=== PATIENT | male | born 1950 | race Caucasian/White ===

== ENCOUNTER 2019-11-10 01:08 | Day surgery (SDC) | payer MEDICARE, OTHER, SELFPAY ==
[2019-11-03 09:42] VITALS: BMI 24.0
[2019-11-10 07:53] VITALS: BP 115/77; PULSE 99; RESP 16; TEMP 36.7; O2SAT 98
[2019-11-10] MEDS: LACTATED RINGERS 1,000 ML 150 ML IV CONT (08:01)
--- NOTE | 2019-11-10 08:10 | WPDANESEPPF ---
Anes - Initial Pre Proc Eval Procedure: Operation Date: 11/10/19 08:30 Proposed Procedures p Colonoscopy - Sadiq Curran DO Date/Time: 11/10/19 08:10 Surgeon: Sadiq Curran DO Pre Op Diagnosis: small bowel obstruction, family hx colon CA Patient Data Age: 68 Gender: M Height: 5 ft 11 in Weight: 76.3 kg Last Vital Signs Temp 36.7 C 11/10/19 07:53 Pulse 99 11/10/19 07:53 Resp 16 11/10/19 07:53 BP 115/77 11/10/19 07:53 Pulse Ox 98 11/10/19 07:53 Allergies Allergy/AdvReac Type Severity Reaction Status Date / Time No Known Allergies Allergy Verified 11/10/19 07:36 Home Medications Medication Instructions Recorded Confirmed Type desoximetasone 1 applic TOPICAL DAILY PRN 09/23/19 11/03/19 History hydrocortisone valerate 1 applic TOPICAL BID PRN 09/23/19 11/03/19 History loratadine [Claritin] 10 mg PO DAILY 09/23/19 11/10/19 History pantoprazole 40 mg PO QAM 09/23/19 11/10/19 History sulindac 200 mg PO BID PRN 09/23/19 11/10/19 History tamsulosin 0.4 mg PO BID 09/23/19 11/10/19 History digoxin 250 mcg PO DAILY 11/03/19 11/10/19 History naproxen 250 mg PO BID PRN 11/03/19 11/10/19 History Patient hx anesthesia problems: none Family hx anesthesia problems: none PMFSH Past Medical History Medical History Arthritis Bowel obstruction (09/22/19) BPH (benign prostatic hyperplasia) Cervical vertebral fusion Chronic back pain Eczema GERD (gastroesophageal reflux disease) Migraine Rectal polyp Surgical History Surgical History H/O local excision of skin lesion History of tonsillectomy Status post removal of part of parathyroid Family History Family History Father Acute myocardial infarction Mother Colon cancer Social History Social History Smoking status: Never smoker Second hand tobacco smoke exposure: Yes Alcohol intake: current Drinks per week: 4 Substance use: never Gender identity (if verbalized by the patient): Male Spiritual care concerns: No Agree to blood products: Yes Anes - Eval Final PreProcedure Day of Procedure 11/10/19 08:10 Patient weight: normal Heart: regular rate and rhythm Lungs: clear to auscultation Airway: Mallampati scale class 1 Neurological: alert and oriented Last oral intake: >/= 8 hours ASA classification: III Emergent: no Anesthetic plan: proceed Anesthesia type and monitoring: general and standard monitoring Informed Consent: The patient's anesthetic plan and its attendant risks and benefits were discussed with the patient/family/POA. Questions were solicited and answers provided to the satisfaction of the patient/family/POA.
--- NOTE | 2019-11-10 08:13 | PM.IMHP ---
H&P: HPI History of Present Illness Chief complaint: small bowel obstruction, family hx colon CA Narrative: Meet Oviedo is a 68 year old male presents today for colonoscopy. Patient has had two SBO for which he was hospitalized in 01/2019 and 09/2019. He gets epigastric abdominal pain and vomiting with these two episodes. Both of these obstructions resolved on thier own without surgical intervention. Last colonsocopy was in 2013 and had tics and roids. He does have personal hx of colon polyps in the past. Strong family hx of colon cancer in his mother, aunt and grandmother. He denies any constpiation, diarrhea, melena, hematochezia, abdominal pains or rectal pains. He does have GERD which is well controlled on protonix daily. Deneis abnormal weight loss, fever or chills. Review of Systems Review of Systems: All systems reviewed & are unremarkable except as noted in HPI and below PMFSH Past Medical History Medical History (Updated 11/10/19 @ 08:21 by Julianna Mulligan, MACHINE FELLER) Arthritis Bowel obstruction (09/22/19) BPH (benign prostatic hyperplasia) Cervical vertebral fusion Chronic back pain Eczema GERD (gastroesophageal reflux disease) GERD (gastroesophageal reflux disease) Hx of adenomatous colonic polyps Migraine PVC (premature ventricular contraction) Rectal polyp SVT (supraventricular tachycardia) Surgical History Surgical History (Updated 11/10/19 @ 08:19 by Julianna Mulligan, MACHINE FELLER) H/O local excision of skin lesion History of tonsillectomy Hx of colonoscopy Hx of esophagogastroduodenoscopy Hx of spinal fusion Hx of tonsillectomy Hx of vasectomy Status post removal of part of parathyroid Family History Family History (Updated 11/10/19 @ 08:20 by Julianna Mulligan, MACHINE FELLER) Father Acute myocardial infarction Mother Colon cancer Other Carcinoma of colon Grandparent Carcinoma of colon Social History Social History Smoking status: Never smoker Second hand tobacco smoke exposure: Yes Alcohol intake: current Drinks per week: 4 Substance use: never Gender identity (if verbalized by the patient): Male Spiritual care concerns: No Agree to blood products: Yes Meds Home Medications and Allergies Home Medications Medication Instructions Recorded Confirmed Type desoximetasone 1 applic TOPICAL DAILY PRN 09/23/19 11/03/19 History hydrocortisone valerate 1 applic TOPICAL BID PRN 09/23/19 11/03/19 History loratadine [Claritin] 10 mg PO DAILY 09/23/19 11/10/19 History pantoprazole 40 mg PO QAM 09/23/19 11/10/19 History sulindac 200 mg PO BID PRN 09/23/19 11/10/19 History tamsulosin 0.4 mg PO BID 09/23/19 11/10/19 History digoxin 250 mcg PO DAILY 11/03/19 11/10/19 History naproxen 250 mg PO BID PRN 11/03/19 11/10/19 History Allergies Allergy/AdvReac Type Severity Reaction Status Date / Time No Known Allergies Allergy Verified 11/10/19 07:36 Vital Signs Vital Signs - 24 hr 11/10/19 07:53 Temperature 36.7 C Pulse Rate 99 Respiratory Rate 16 Blood Pressure 115/77 Pulse Oximetry 98 Exam Const: General: cooperative, healthy appearing, comfortable, alert and awake Nutritional Appearance: average body habitus Orientation/consciousness: oriented to person, oriented to place, oriented to time and patient oriented x3 Limitations: no limitations HENMT: Head: normal to inspection and normocephalic Mouth: Yes Normal oral and palatal mucosa present and Yes moist mucous membranes Neck: Neck: normal visual inspection, supple and no JVD Carotids: no bruits Resp: Effort & Inspection: normal respiratory effort and no respiratory distress Auscultation: clear to auscultation bilaterally Cardio: Rate: bradycardic Rhythm: regular rhythm and other Heart sounds: S1 normal heart sound present, S2 normal heart sound present, no gallops, no murmurs and no rubs GI: Inspection: normal to inspection GI Palp: No abdominal tenderness and
[2019-11-10 09:25] VITALS: BP 96/64; PULSE 65; RESP 16; O2SAT 95
[2019-11-10 09:35] VITALS: BP 105/65; PULSE 60; RESP 16; O2SAT 97
[2019-11-10 09:45] VITALS: BP 109/74; PULSE 53; RESP 18; O2SAT 99
== END 2019-11-10 10:20 | disposition home or self-care (01) ==
PROVIDERS: PCP Family Medicine Adolescent Medicine; Visit Provider Internal Medicine Gastroenterology
PROC: 0DJD8ZZ Inspection of Lower Intestinal Tract, Via Natural or Artificial Opening Endoscopic (ICD-10-PCS; CPT 45378; principal; 2019-11-10 08:30)
DX: Z09 Encounter for follow-up examination after completed treatment for conditions other than malignant neoplasm (principal); K52.9 Noninfective gastroenteritis and colitis, unspecified; K57.30 Diverticulosis of large intestine without perforation or abscess without bleeding; K64.8 Other hemorrhoids; Z86.010 Personal history of colon polyps; Z87.19 Personal history of other diseases of the digestive system; Z80.0 Family history of malignant neoplasm of digestive organs; K21.9 Gastro-esophageal reflux disease without esophagitis; N40.0 Benign prostatic hyperplasia without lower urinary tract symptoms; M19.90 Unspecified osteoarthritis, unspecified site; L30.9 Dermatitis, unspecified; Z98.1 Arthrodesis status
CPT/HCPCS: 45380; 88305; J2001; J2704; J7120

== ENCOUNTER 2021-10-03 10:07 | Outpatient (CLI) | payer MEDICARE, OTHER, SELFPAY ==
--- NOTE | ~2021-10-03 | US_ITS ---
EXAMINATION: US carotid duplex BI DATE: 10/03/2021 10:37 INDICATION: Diplopia. TECHNIQUE: Grayscale, color Doppler, and pulsed Doppler images of the cervical carotid arteries were obtained. The degree of vessel stenosis is placed in one of the following categories: normal, <50%, 5 0-69%, >=70% but less than near-occlusion, near-occlusion, or total occlusion. Note that percent sten osis relative to normal distal artery lumen diameter is indirectly measured from velocity measurement s as described by Julio César, et al. Radiology 2003; 229:340-346. COMPARISON: None. FINDINGS: RIGHT: The right common carotid artery (CCA) peak systolic velocity (PSV) is 140 cm/s. The right internal ca rotid artery (ICA) PSV is 101 cm/s. The right ICA end-diastolic velocity (EDV) is 20 cm/s. The right ICA/CCA PSV ratio is 0.7. Grayscale and color Doppler images yield an estimate of <50% diameter reduc tion from plaque in the ICA. There is antegrade flow in the right vertebral artery. LEFT: The left CCA PSV is 116 cm/s. The left ICA PSV is 70 cm/s. The left ICA EDV is 25 cm/s. The left ICA/ CCA PSV ratio is 0.6. Grayscale and color Doppler images yield an estimate of <50% diameter reduction from plaque in the ICA. There is antegrade flow in the left vertebral artery. IMPRESSION: 1. <50% stenosis in the right internal carotid artery. 2. <50% stenosis in the left internal carotid artery. Reviewed, dictated and finalized at location B. TENDER
== END 2021-10-03 10:08 | disposition home or self-care (01) ==
LOC: ANHIMG 10:10
PROVIDERS: PCP Family Medicine Adolescent Medicine; Visit Provider Family Medicine Adolescent Medicine
DX: H53.2 Diplopia (principal); I65.23 Occlusion and stenosis of bilateral carotid arteries
CPT/HCPCS: 93880

== ENCOUNTER 2022-03-28 07:49 | Outpatient (CLI) | payer MEDICARE, OTHER, SELFPAY ==
--- NOTE | ~2022-03-28 | NM_ITS ---
EXAMINATION: NM bone scan whole body DATE: 03/28/2022 11:15 INDICATION: Prostate cancer TECHNIQUE: 25 mCi Tc-99m HDP was administered intravenously. Delayed whole-body scintigrams were obt ained. COMPARISON: CT abdomen and pelvis dated 09/22/2019. There are no more recent relevant imaging studies at our institution. FINDINGS: Small focus of mild likely degenerative uptake centered over the mid right cervical facet joints. Mil d likely degenerative uptake at the right side of the L5-S1 disc space with associated severe disc he ight loss and degenerative endplate changes evident on CT abdomen and pelvis dated 09/22/2019. Additi onal mild likely degenerative joint centered uptake at the right ankle. No other suspicious foci of a bnormal bone uptake to suggest metastatic disease. IMPRESSION: 1. No bone lesion suspicious for metastatic disease. Reviewed, dictated and finalized at location B.
== END 2022-03-28 07:50 | disposition home or self-care (01) ==
PROVIDERS: PCP Family Medicine Adolescent Medicine; Visit Provider Urology
DX: C61 Malignant neoplasm of prostate (principal)
CPT/HCPCS: 78306; A9561

== ENCOUNTER 2022-04-11 13:21 | Outpatient (CLI) | payer MEDICARE, OTHER, SELFPAY ==
--- NOTE | ~2022-04-11 | PE_ITS ---
EXAMINATION: PET_PETPSMAST_PT DATE: 04/11/2022 16:24 INDICATION: Prostate cancer. Initial staging. TECHNIQUE: 8.762 mCi of pipflufolastat F-18 (18-F-DCFPyL) was administered i.v. Low dose computed to mography (CT) images were acquired from the base of the brain to the base of the brain to the proxima l thighs for attenuation correction and anatomic localization. Positron emission tomography (PET) isiah ges were acquired in the same distribution beginning 97 minutes after injection. Images including fus ed PET/CT images were reconstructed in axial, coronal, and sagittal planes. Automated exposure contro l technique was employed. The dose-length product was 811.08mGy-cm. COMPARISON: Bone scan dated 03/28/2022 FINDINGS: Head/neck: Typical pattern of symmetric physiologic increased activity in the lacrimal, parotid and submandibula r glands as well as along the mucosa of the oropharynx and nasopharynx. There appears to be uptake as sociated with a small right accessory parotid gland overlying the right masseter muscle with similar slightly greater than fat attenuation groundglass density on the CT images. No pathologically enlarge d cervical lymphadenopathy or suspicious foci of increased uptake in the visualized head or neck. Chest: Respiratory motion in the lungs which appear otherwise clear with no suspicious pulmonary nodules, pn eumonia, pulmonary edema or pleural effusion. Heart size is normal. Thoracic aorta is normal in calib er. No pathologically enlarged or PSMA avid thoracic lymphadenopathy. Abdomen/pelvis/proximal thighs: Physiologic renal accumulation and excretion of activity in the kidneys, bladder and along portions o f ureters. There is a small focus of increased activity with maximal SUV of 6.9 cm the apex of the pr ostate, slightly to the right of midline and which is without CT correlate. This could be related to the reported suspicious lesion on prior MRI however per report the lesion of concern was located in t he peripheral zone on the left at the apex. Alternatively this could represent small amount of urine activity within the prostatic urethra. Normal degree and slightly heterogenous pattern of increased u ptake throughout the liver and spleen without radiologic correlate or dominant PSMA avid lesion. The gallbladder, pancreas and bilateral adrenal glands are normal. Moderate uptake scattered throughout t he bowels with typical duodenal predominance and without radiologic correlate, also likely physiologi c. No other abnormal foci of increased uptake or pathologically enlarged lymphadenopathy in the abdom en, pelvis or proximal thighs. Musculoskeletal: C5-C7 anterior spinal fusion with plate and screw fixation which likely accounts for the increased up take in this region on prior bone scan. Severe facet osteoarthritis on the right at C3-C4 and sclerot ic degenerative endplate changes with severe disc height loss on the left at L2-L3 and on the right a t L4-L5 each with additional mild corresponding increased uptake on prior bone scan. No suspicious ly tic, blastic or PSMA avid bone lesions to suggest metastatic disease. IMPRESSION: 1. No evident metastatic disease in the bones, neck, chest, abdomen or pelvis. 2. Small focus of increased uptake in the apex of the prostate which could represent the primary pros guadalupe cancer although the lesion of concern on prior MRI as described as being at the left side of the apex as opposed to the focus of uptake which is slightly on the right. Alternatively this could repr esent small amount of urine activity within the prosthetic urethra. 3. Focus of uptake in the right buccal region overlying the masseter muscle most likely representing accessory right parotid gland. Reviewed, dictated and finalized at location A.
== END 2022-04-11 13:22 | disposition home or self-care (01) ==
PROVIDERS: PCP Family Medicine Adolescent Medicine; Visit Provider Urology
DX: C61 Malignant neoplasm of prostate (principal)
CPT/HCPCS: 78815; A9595

== ENCOUNTER 2022-05-14 10:05 | Outpatient (CLI) | payer MEDICARE, OTHER, SELFPAY ==
[2022-05-14 11:32] LABS: Basophils Absolute Auto 0.1 K/mm3 (0.0-0.1); Basophils Percent Auto 1.2 % (0.2-1.2); Eosinophils Absolute Auto 0.2 K/mm3 (0-0.3); Eosinophils Percent Auto 4.2 % (0-4.4); Hematocrit 38.8 % (42.0-52.0); Hemoglobin 12.4 g/dL (14.0-18.0); Immature Granulocyte Absolute 0.01 K/mm3 (0.00-0.031); Immature Granulocyte Percent A 0.2 % (0-0.5); Lymphocytes Absolute Auto 0.93 K/mm3 (0.9-3.2); Lymphocytes Percent Auto 18.4 % (18.3-44.2); Mean Corpuscular Hemoglobin 29.4 pg (26-34); Mean Corpuscular Volume 91.9 fl (80-100); Mean Platelet Volume 9.9 fl (7.4-10.4); Monocytes Absolute Auto 0.6 K/mm3 (0.1-0.6); Monocytes Percent Auto 11.9 % (2.6-8.5); Neutrophils Absolute Auto 3.2 K/mm3 (1.3-6.7); Neutrophils Percent Auto 64.1 % (45.5-73.1); Platelet Count Result 278 k/mm3 (150-375); Red Blood Count 4.22 M/mm3 (4.6-6.20); Red Cell Distribution Width 14.6 % (11.5-14.5); White Blood Count 5.1 K/mm3 (4.5-10.0)
[2022-05-14 11:45] LABS: INR 1.1; Partial Thromboplastin Time 26.2 SECONDS (22.3-36.8); Prothrombin Time 13.7 Seconds (11.1-14.7)
[2022-05-14 11:50] LABS: Alanine Aminotransferase 16 U/L (6-50); Albumin Level 4.4 g/dL (3.5-5.1); Alkaline Phosphatase 67 U/L (38-126); Anion Gap 11 mmol/L (8-16); Aspartate Amino Transferase 26 U/L (17-59); Bilirubin,Total 0.4 mg/dL (0.2-1.3); Blood Urea Nitrogen 17 mg/dL (9-20); Calcium 9.3 mg/dL (8.4-10.2); Carbon Dioxide 24 mmol/L (22-30); Chloride 103 mmol/L (98-107); Estimated Glomerular Filt Rate > 60; Glucose 103 mg/dL (65-110); Potassium 4.1 mmol/L (3.4-5.0); Sodium 138 mmol/L (137-145)
[2022-05-15 08:02] LABS: Digoxin < 0.4 ng/mL (0.8-2.0)
== END 2022-05-14 10:06 | disposition home or self-care (01) ==
PROVIDERS: Anesthesiology; PCP Family Medicine Adolescent Medicine; Visit Provider Urology
DX: Z01.812 Encounter for preprocedural laboratory examination (principal); C61 Malignant neoplasm of prostate; Z51.81 Encounter for therapeutic drug level monitoring; Z79.899 Other long term (current) drug therapy
CPT/HCPCS: 36415; 80053; 80162; 85025; 85610; 85730; 86850; 86900; 86901; 87086

== ENCOUNTER 2022-05-27 00:21 | Day surgery (SDC) | payer MEDICARE, OTHER, SELFPAY ==
[2022-05-14 10:16] VITALS: BMI 25.0
--- NOTE | 2022-05-14 10:48 | PC.NURSE ---
Addendum entered by Juliana Jauregui RN 05/14/22 10:57: TAKES DIGOXIN AT PM EVERY OTHER DAY. WILL NOT TAKE AM OF SURGERY Original Note: Report to the Outpatient Waiting Room, entrance under the green pavilion located off [facility], at time __0600 on date _05/27/22 . OR Time: _0730 . - You and your visitor will be asked a series of questions to screen for COVID 19 for your protection. - Only one visitor is allowed at this time. - The patient visitor is requested to leave or wait in car when not with patient. - A mask is required within the hospital. Patients may have clear liquids (water, carbonated beverages, clear teas, apple juice) until 3 hours prior to surgery with a maximum of 20 ounces. - No food from midnight until time of surgery - Infants may have breast milk until 4 hours before surgery, formula 6 hours prior to surgery. - Children will be allowed to drink immediately following surgery. If applicable, please bring a bottle or sippy cup to assist with drinking. Juice, water, soda, and popsicles are readily available. For infants on formula, please bring formula the day of surgery. Pacifiers are allowed. Take the following medications with a SIP of water the morning of surgery: __DIGOXIN Medications to discontinue per physician PT STATES ASPIRIN 7 DAYS PRE OP PER DR SHAH Date to take last dose_05/19/22 Please no make-up, nail mohawk, hairspray, perfume, deodorant, or body powder the day of surgery. No jewelry (including any body piercings) or valuables the day of surgery, leave them at home. Please take a shower or bath the night before, or the morning of, surgery with an antibacterial soap. Wear comfortable, loose fitting clothing. Children are encouraged to wear pajamas. - Jewelry must be removed prior to entering the operating room. Rings and piercings that are not removed may be cut off. - The hospital will not accept responsibility for valuables. - Please leave all valuables, including medications, at home the day of surgery. If you are going home after surgery, a licensed box truck driver must drive you home. - NO public transportation without another adult. - We recommend that an adult stay with you for 24 hours following discharge. - We also recommend that you do not drive, make important decision, drink alcoholic beverages, or take any drugs that were not prescribed by your health care provider for at least 24 hours after your discharge time. For Pediatric surgeries, we recommend two adults accompany the child home (only one inside the building at this time). Follow any additional instructions given to you from your surgeon. If you or anyone in your household have experienced Covid symptoms in the past week, please notify your surgeon or the nurse liaison at the phone number below for possible testing. VERBAL AND WRITTEN instructions given to __PATIENT and asked if any additional questions and then verbalized understanding. Patient advised to call surgeon office or pre surgery nurse liaison [phone] if any additional questions.
[2022-05-14 11:11] VITALS: BP 142/84; PULSE 77; RESP 18; TEMP 37.1; O2SAT 99
--- NOTE | 2022-05-26 13:28 | WPDANESEPPF ---
Anes - Initial Pre Proc Eval Procedure: Operation Date: 05/27/22 07:30 Proposed Procedures p Robotic Assisted Nerve Sparing Prostatectomy with Possible Pelvic Lymph Node Dissection - Porfirio Williamson MD Date/Time: 05/26/22 13:28 Surgeon: Porfirio Williamson MD Pre Op Diagnosis: Prostate CA Patient Data Age: 71 Gender: M Height: 1.8 m Weight: 81.4 kg Last Vital Signs Temp 98.7 F 05/14/22 11:11 Pulse 77 05/14/22 11:11 Resp 18 05/14/22 11:11 BP 142/84 H 05/14/22 11:11 Pulse Ox 99 05/14/22 11:11 O2 Del Method Room Air 05/14/22 11:11 Allergies Allergy/AdvReac Type Severity Reaction Status Date / Time No Known Allergies Allergy Verified 05/27/22 06:13 Home Medications Medication Instructions Recorded Confirmed Type desoximetasone 0.25 % topical cream 1 applic topical PRN PRN Excema 09/23/19 05/27/22 History hydrocortisone valerate 0.2 % 1 applic topical PRN PRN ECZEMA 09/23/19 05/27/22 History topical cream loratadine 10 mg tablet (Claritin) 10 mg PO DAILY 09/23/19 05/27/22 History pantoprazole 40 mg tablet,delayed 40 mg PO QAM 09/23/19 05/27/22 History release digoxin 250 mcg (0.25 mg) tablet 125 mcg PO EVERY OTHER DAY 11/03/19 05/27/22 History aspirin 81 mg tablet,delayed 81 mg PO DAILY 01/13/22 05/27/22 History release tamsulosin 0.4 mg capsule 0.4 mg PO BID #180 caps 02/05/22 05/27/22 Rx cholestyramine-aspartame 4 gram See Rx Instructions .Route 03/03/22 05/27/22 Rx oral powder (Prevalite) .COMPLEX #231 grams acetaminophen 500 mg tablet 1,000 mg PO Q6H PRN Pain 05/14/22 05/27/22 History Patient hx anesthesia problems: none Family hx anesthesia problems: none Results Review: All pre-operative results and documents have been reviewed as part of the pre-operative evaluation. [facility] Past Medical History Medical History (Updated 01/10/22 @ 08:20 by Lloyd Melissa MD) Anemia Arthritis Bowel obstruction (09/22/19) BPH (benign prostatic hyperplasia) Cervical vertebral fusion Chronic back pain Eczema GERD (gastroesophageal reflux disease) History of hyperparathyroidism 2004 Hx of adenomatous colonic polyps Hx SBO Migraine PVC (premature ventricular contraction) Rectal polyp SVT (supraventricular tachycardia) Surgical History Surgical History (Updated 01/10/22 @ 08:07 by Llody Melissa MD) Hx of colonoscopy Hx of esophagogastroduodenoscopy Hx of spinal fusion Hx of tonsillectomy Hx of vasectomy Status post removal of part of parathyroid 2015 Family History Family History (Updated 01/13/22 @ 09:43 by Carine Mooney MA) Father Acute myocardial infarction Hypertension Heart disease Mother Colon cancer Carcinoma of colon Colon polyp Other Carcinoma of colon Grandparent Carcinoma of colon Colon polyp Cerebrovascular accident Heart disease Hypertension Sibling Acute myocardial infarction Carcinoma of colon Colon polyp Heart disease Hypertension Social History Social History (Updated 01/13/22 @ 09:44 by Carine Mooney MA) Smoking status: Never smoker Second hand tobacco smoke exposure: No Alcohol intake: current Drinks per week: 1 Substance use: never Substance use type: does not use Living arrangements: with family Gender identity (if verbalized by the patient): Male Sexual Orientation (if Verbalized by the Patient): Straight or Heterosexual Spiritual care concerns: No Agree to blood products: Yes Anes - Eval Final PreProcedure Day of Procedure 05/26/22 13:28 Patient weight: normal Heart: regular rate and rhythm Lungs: clear to auscultation Airway: Mallampati scale class II Neurological: alert and oriented Last oral intake: >/= 8 hours ASA classification: III Emergent: no Anesthetic plan: proceed Anesthesia type and monitoring: general ETT and standard monitoring Results Review: All pre-operative results and documents have been reviewed as part of t
[2022-05-27] VITALS (16 sets, daily range): BP systolic 107–180; BP diastolic 62–93; PULSE 60–83; RESP 12–18; TEMP 35.9–36.9; O2SAT 95–100
--- NOTE | 2022-05-27 05:56 | ECG_ITS ---
Measurements Intervals [place] Rate: 70 P: 90 DE: 183 QRS: -43 QRSD: 129 T: 76 QT: 389 QTc: 420 Interpretive Statements SINUS RHYTHM WITH OCCASIONAL VENTRICULAR PREMATURE COMPLEXES LEFTWARD AXIS LEFT VENTRICULAR HYPERTROPHY AND ST-T CHANGE LATERAL MYOCARDIAL INFARCTION , PROBABLY RECENT Electronically Signed On 05-27-2022 8:28:13 CDT by Alejandro Amaya M.D.
--- NOTE | 2022-05-27 07:10 | WPDHPUPDATE1 ---
History and Physical Update Update Date/Time: 05/27/22 07:10 History and Physical has been reviewed, including an updated exam of the patient. There are NO changes in the patient's condition. Risks, benefits, and alternatives have been discussed and questions answered. Patient agrees to proceed with procedure.
[2022-05-27] MEDS: LACTATED RINGERS 1,000 ML 30 ML IV CONT ×2 (07:14→12:28)
[2022-05-27] MEDS: ceFAZolin 2 GM/D5W 50 ML 2 GM/50 ML BAG IVPB (07:34)
--- NOTE | 2022-05-27 12:09 | W.PM.PROC2 ---
Procedure Note - Detailed Date of Procedure 05/27/22 Pre-op Diagnosis Prostate CA Meatal stenosis Post-op Diagnosis Same Procedure Performed Urethral dilation to 20 [place], robotic assisted nerve-sparing prostatectomy with bilateral pelvic lymphadenectomy Surgeon Porfirio Williamson MD Anesthesia General Description of Procedure Patient is taken to the operative suite correctly identified. Once anesthesia was obtained was placed in low-lying dorsal lithotomy position and prepped and draped usual sterile fashion. The meatus was tight and would not allow passage of a 20 [place] Brown catheter. We dilated the meatus up to 20 [place] then placed a 20 [place] Brown without difficulty inflated the balloon up to 20 cc. He was prepped draped usual sterile fashion as stated. Supraumbilical incision was then made and carried down to the rectus fascia. Veress needle inserted. At the was insufflated to 15 mmHg pressure. Camera port was placed under direct vision. Working ports were then placed under direct vision also. Patient was placed in steep Trendelenburg position and the robot was docked. A posterior approach was then performed. We did take some in down some adhesions of the sigmoid colon. The seminal vesicles were dissected out in their entirety. Vas is were transected. The plane to the prostate and rectum was dissected. Bladder was then taken down in standard fashion. Space of Retzius was developed bilaterally. Puboprostatic were taken down. Dorsal venous complex was isolated using an 0 Vicryl and secured to the pubic bone. Bladder neck was then opened and was spared in a bladder neck sparing procedure. Posterior to not be Zaiz was incised. The previously dissected seminal vesicles and vas were visualized. Pedicles were clipped. Bilateral nerve-sparing was performed. Dorsal venous complex was transected. The urethra was also transected with a nice stump. Patient had 2 prominent lobes surrounding the urethra. There was also part of the prostate that was dissecting underneath the urethra. I dissected out some extra tissue underneath the urethra and sent it for separate analysis. Bilateral pelvic lymphadenectomy was then performed with boundaries being the obturator nerve, external iliac vein, Tyrell's ligament, and bifurcation of the vessels. Clips were placed proximally and distally on the packets. The right pelvic lymph node packet had a clip placed on it for identification. A Peter stitch was then placed using 0 Vicryl. There was anastomosis of the bladder neck to the urethral stump using V lock in a running fashion. There was good approximation mucosa. Bladder was filled without of 50 cc of saline. This was retrieved without any evidence of extravasation. The 4th arm port was then removed in a ADRIAN drain was placed and secured. All lap count needle count sponge counts were correct. Rectus fascia was opened slightly and the specimen was brought out to the midline incision. Rectus fascia was closed using 0 Vicryl running fashion. Subcuticular stitches were then placed. All lap counts needle counts and sponge counts were correct. Patient taken recovery stable condition. Estimated Blood Loss 100 Drains Yes Packing No Pathology Yes Complications No immediate complications Condition Stable Disposition PACU
[2022-05-27] MEDS: fentaNYL CITRATE INJ (*CRX) 100 MCG/2 ML VIAL 25 MCG IV PUSH ×8 (12:42→13:15)
[2022-05-27] MEDS: HYDROmorphone HCL INJ (*CRX) 1 MG/ML SYR 0.5 MG IV PUSH ×3 (13:27→14:01)
[2022-05-27] MEDS: ONDANSETRON INJ 4 MG/2 ML VIAL IV PUSH ×2 (15:06→20:12)
[2022-05-27] MEDS: LACTATED RINGERS 1,000 ML 125 ML IV CONT ×2 (15:07→22:50)
[2022-05-27] MEDS: HYDROcodone/acetaminophen (*CRX) 5-325 MG TABLET 2 TAB PO (15:23)
--- NOTE | 2022-05-27 16:01 | ADMGEN ---
This patient, Meet Oviedo, was admitted to Medical Room 251-01. Patient/family oriented to hospital policies and general routines including ID bracelet, bed and alarms, visiting hours, pain management, procedures, bathroom and other care routines, personal items, smoking policy, room service/diet, and visiting hours. Information on how to activate the Rapid Response Team has been discussed. Patient/Family are encouraged to report perceived risks to care and to ask questions if they do not understand what they are told or what they should do.
[2022-05-27] MEDS: DIGOXIN TAB 125 MCG TABLET PO (17:14)
[2022-05-27] MEDS: DOCUSATE SODIUM 100 MG CAPSULE PO (17:15)
--- NOTE | 2022-05-27 18:57 | PC.NURSE ---
Webmaster reviewed Yudy Jackson RNLP charting and agreed.
[2022-05-27] MEDS: KETOROLAC 15 MG/ML VIAL (*BKC) IV PUSH (20:11)
[2022-05-28] MEDS: HYDROcodone/acetaminophen (*CRX) 5-325 MG TABLET 2 TAB PO ×2 (02:03→06:56)
[2022-05-28] MEDS: ONDANSETRON INJ 4 MG/2 ML VIAL IV PUSH (02:08)
[2022-05-28 04:08] VITALS: BP 110/62; PULSE 65; RESP 17; TEMP 36.2; O2SAT 98
[2022-05-28 05:56] LABS: Hematocrit 31.6 % (42.0-52.0); Hemoglobin 10.1 g/dL (14.0-18.0)
[2022-05-28 06:08] LABS: Anion Gap 5 mmol/L (8-16); Blood Urea Nitrogen 13 mg/dL (9-20); Calcium 7.9 mg/dL (8.4-10.2); Carbon Dioxide 29 mmol/L (22-30); Chloride 101 mmol/L (98-107); Estimated CRCL calculation 65 ml/min; Estimated Glomerular Filt Rate > 60; Glucose 87 mg/dL (65-110); Sodium 135 mmol/L (137-145)
[2022-05-28] MEDS: LACTATED RINGERS 1,000 ML 125 ML IV CONT (06:55)
[2022-05-28] MEDS: DOCUSATE SODIUM 100 MG CAPSULE PO (08:04)
[2022-05-28] MEDS: levoFLOXacin 500 MG TABLET PO (08:04)
--- NOTE | 2022-05-28 08:36 | WPDANESPN ---
Anes - Prog Note Post-Op Date/Time: 05/28/22 08:36 Cardiovascular status: normal Respiratory status: normal Airway patency: baseline Mental status: baseline Post-Op hydration status: normal Vital Signs: Last Vital Signs Temp 36.2 C L 05/28/22 04:08 Pulse 65 05/28/22 04:08 Resp 17 05/28/22 04:08 BP 110/62 05/28/22 04:08 Pulse Ox 98 05/28/22 04:08 O2 Del Method Room Air 05/27/22 20:00 O2 Flow Rate 6 05/27/22 13:00 Pain Score (VAS): 2 I/O: Intake & Output 05/27/22 05/28/22 05/28/22 23:59 07:59 15:59 Intake Total 1150 1500 Output Total 315 950 Balance 835 550 Laboratory Tests 05/28/22 05:29 05/28/22 05:29 05/28/22 05/28/22 05:29 05:29 Hgb 10.1 L Hct 31.6 L Sodium 135 L Potassium 4.0 Chloride 101 Carbon Dioxide 29 Anion Gap 5 L BUN 13 Creatinine 1.00 Estim Creat Clear Calc 65 Estimated GFR > 60 Glucose 87 Calcium 7.9 L Patient Feedback: Patient satisfied with anesthetic care.
[2022-05-28 10:00] VITALS: BP 121/68; PULSE 64; RESP 18; TEMP 36.7; O2SAT 98
[2022-05-28] MEDS: KETOROLAC 15 MG/ML VIAL (*BKC) IV PUSH (12:29)
--- NOTE | 2022-05-28 12:37 | WPDUROPN2 ---
Progress Note: A&P Assessment and Plan (1) Benign prostatic hyperplasia with lower urinary tract symptoms: Code(s): N40.1 - Benign prostatic hyperplasia with lower urinary tract symptoms Status: Acute Assessment and Plan: Ok to remove ADRIAN drain then discharge home with anderson catheter. Subjective Subjective Date/Time Seen: 05/28/22 12:37 Patient is doing well today s/p Robotic assisted nerve sparing prostatectomy with bilateral pelvic lymphadenectomy and urethral dilation. He is tolerating diet, activity and pain. Post Op day: 1 Review of Systems Respiratory: Respiratory: Reports no additional respiratory complaints Gastrointestinal: Gastrointestinal: Reports abdominal pain (at incisions only), Denies nausea and Denies vomiting Genitourinary: Genitourinary: Denies hematuria and Denies flank pain Exam Resp: Effort & Inspection: normal respiratory effort Cardio: Rate: regular rate GI: Inspection: incision (well approximated, no drainage, edema or redness present) GI Palp: Yes Soft to palpation and No Tenderness to palpation present (GI) Other: drain is draining small amounts of bloody drainage to bulb suction, it is sutured and taped in place. : General: Yes no CVA tenderness Extrem: Right lower extremity: no edema Left lower extremity: no edema Objective Data Vital Signs Vital Signs: Vital Signs - 24 hr 05/27/22 12:45 05/27/22 13:00 05/27/22 13:15 Temperature Pulse Rate 60 68 79 Respiratory Rate 14 15 12 Blood Pressure 107/76 180/63 H 108/93 H Pulse Oximetry 100 100 99 Oxygen Delivery Simple Face Mask Simple Face Mask Room Air Oxygen Flow Rate 8 6 05/27/22 13:30 05/27/22 13:45 05/27/22 14:00 Temperature Pulse Rate 81 82 80 Respiratory Rate 14 12 14 Blood Pressure 128/83 138/75 133/81 Pulse Oximetry 97 98 98 Oxygen Delivery Room Air Room Air Room Air Oxygen Flow Rate 05/27/22 14:15 05/27/22 16:17 05/27/22 14:40 Temperature 97.5 F L Pulse Rate 82 77 Respiratory Rate 14 16 Blood Pressure 134/74 131/74 Pulse Oximetry 98 95 Oxygen Delivery Room Air Room Air Oxygen Flow Rate 05/27/22 15:25 05/27/22 16:25 05/27/22 17:14 Temperature 97.9 F 97.8 F Pulse Rate 83 77 77 Respiratory Rate 18 18 Blood Pressure 129/72 124/66 Pulse Oximetry 95 97 Oxygen Delivery Oxygen Flow Rate 05/27/22 19:21 05/27/22 20:00 05/27/22 23:27 Temperature 98.4 F 98.2 F Pulse Rate 75 75 63 Respiratory Rate 17 17 17 Blood Pressure 121/76 114/73 Pulse Oximetry 99 99 98 Oxygen Delivery Room Air Oxygen Flow Rate 05/28/22 04:08 05/28/22 08:00 05/28/22 10:00 Temperature 97.2 F L 98.1 F Pulse Rate 65 64 Respiratory Rate 17 18 Blood Pressure 110/62 121/68 Pulse Oximetry 98 98 Oxygen Delivery Room Air Oxygen Flow Rate Intake/Output Intake/Output: Intake & Output 05/25/22 05/26/22 05/27/22 05/28/22 23:59 23:59 23:59 23:59 Intake Total 2850 1740 Output Total 465 990 Balance 2385 750 Meds/Results Medications: Active Medications Generic Name Dose Route Start Last Admin Trade Name Freq PRN Reason Stop Dose Admin Hydrocodone Bitart/Acetaminophen 1 tab 05/27/22 14:28 Hydrocodone/Acetaminophen (*Crx) 5-325 Mg Tablet PO Q6H PRN Pain Rated 1-3 Hydrocodone Bitart/Acetaminophen 2 tab 05/27/22 14:28 05/28/22 06:56 Hydrocodone/Acetaminophen (*Crx) 5-325 Mg Tablet PO 2 tab Q6H PRN Administration Pain Rated 4-6 Digoxin 125 mcg 05/27/22 18:00 05/27/22 17:14 Digoxin Tab 125 Mcg Tablet PO 125 mcg Q48H CORNELIUS Administration Docusate Sodium 100 mg 05/27/22 17:00 05/28/22 08:04 Docusate Sodium 100 Mg Capsule PO 100 mg BID CORNELIUS Administration Hyoscyamine 0.125 mg 05/27/22 14:28 Hyoscyamine Sulfate 0.125 Mg Tablet SUBLINGUAL Q4H PRN Bladder Spasm Ketorolac Tromethamine 15 mg 05/27/22 14:28 05/28/22 12:29 Ketorolac 15 Mg/Ml Vial (*Bkc) IV PUSH 05/28/22 14
[2022-05-28 14:00] VITALS: BP 126/62; PULSE 69; RESP 18; TEMP 36.8; O2SAT 98
== END 2022-05-28 15:45 | disposition home or self-care (01) ==
LOC: ANHSURGERY 06:02 → ANH2MED 05-28 12:37
PROVIDERS: PCP Family Medicine Adolescent Medicine; Visit Provider Urology
PROC: 0VT04ZZ Resection of Prostate, Percutaneous Endoscopic Approach (ICD-10-PCS; CPT 55867; principal; 2022-05-27 07:30)
DX: C61 Malignant neoplasm of prostate (principal); N35.911 Unspecified urethral stricture, male, meatal
CPT/HCPCS: 55866; 38571; 36415; 80048; 85014; 85018; 88305; 88309; 93005; A9270; J0690; J1100; J1170; J1885; J2250; J2405; J2704; J3010; J7030; J7120

== ENCOUNTER 2022-06-04 07:29 | Outpatient (CLI) | payer MEDICARE, OTHER, SELFPAY ==
--- NOTE | ~2022-06-04 | XR_ITS ---
EXAMINATION: XR cystogram DATE: 06/04/2022 08:05 INDICATION: Prostate cancer status post prostatectomy. TECHNIQUE: Water-soluble contrast was gravity-infused through the patient's Brown catheter. Multiple fluoroscopic images were obtained. Fluoroscopy exposure time was 0.3 minutes. The total number of isiah ges was 12. COMPARISON: PET CT 04/11/2022 FINDINGS: There is a diverticulum of the bladder on the right. There is no extraluminal leakage of co ntrast. No ureteral reflux. IMPRESSION: 1. No extraluminal leakage of contrast. Reviewed, dictated and finalized at location A.
== END 2022-06-04 07:30 | disposition home or self-care (01) ==
LOC: ANHIMG 07:33
PROVIDERS: PCP Family Medicine Adolescent Medicine; Visit Provider Urology
DX: C61 Malignant neoplasm of prostate (principal)
CPT/HCPCS: 51600; 74430; Q9967

== ENCOUNTER 2022-10-21 12:39 | Outpatient (CLI) | payer MEDICARE, OTHER, SELFPAY ==
--- NOTE | ~2022-10-21 | US_ITS ---
EXAMINATION: US carotid duplex BI DATE: 10/21/2022 13:53 INDICATION: Bilateral carotid stenosis. TECHNIQUE: Grayscale, color Doppler, and pulsed Doppler images of the cervical carotid arteries were obtained. The degree of vessel stenosis is placed in one of the following categories: normal, <50%, 5 0-69%, >=70% but less than near-occlusion, near-occlusion, or total occlusion. Note that percent sten osis relative to normal distal artery lumen diameter is indirectly measured from velocity measurement s as described by Julio César, et al. Radiology 2003; 229:340-346. COMPARISON: Ultrasound 10/03/2021 FINDINGS: RIGHT: The right common carotid artery (CCA) peak systolic velocity (PSV) is 108 cm/s. The right internal ca rotid artery (ICA) PSV is 82 cm/s. The right ICA end-diastolic velocity (EDV) is 15 cm/s. The right I CA/CCA PSV ratio is 0.8. Grayscale and color Doppler images yield an estimate of <50% diameter reduct ion from plaque in the ICA. There is antegrade flow in the right vertebral artery. LEFT: The left CCA PSV is 97 cm/s. The left ICA PSV is 72 cm/s. The left ICA EDV is 26 cm/s. The left ICA/C CA PSV ratio is 0.7. Grayscale and color Doppler images yield an estimate of <50% diameter reduction from plaque in the ICA. There is antegrade flow in the left vertebral artery. IMPRESSION: 1. <50% stenosis in the right internal carotid artery. 2. <50% stenosis in the left internal carotid artery. Reviewed, dictated and finalized at location A. LINE REPAIRER
== END 2022-10-21 12:40 | disposition home or self-care (01) ==
PROVIDERS: PCP Family Medicine Adolescent Medicine; Visit Provider Family Medicine Adolescent Medicine
DX: I65.23 Occlusion and stenosis of bilateral carotid arteries (principal)
CPT/HCPCS: 93880

== ENCOUNTER 2024-03-31 08:42 | Outpatient (CLI) | payer MEDICARE, OTHER, SELFPAY ==
--- NOTE | ~2024-03-31 | MR_ITS ---
EXAMINATION: MR pelvis wo/w con DATE: 03/31/2024 09:53 INDICATION: Malignant neoplasm of prostate. TECHNIQUE: Magnetic resonance imaging (MRI) of the pelvis was performed without and with 18 mL MultiH ance intravenous contrast. COMPARISON: PET/CT 04/11/2022 FINDINGS: There are changes of prostatectomy. There are no pathologically enlarged lymph nodes. There is divert iculosis of the colon without evidence of diverticulitis. There are bilateral inguinal hernias contai susy fat. IMPRESSION: 1. Prostatectomy. No evidence of metastatic disease. Reviewed, dictated and finalized at location A.
== END 2024-03-31 08:43 | disposition home or self-care (01) ==
PROVIDERS: PCP Family Medicine Adolescent Medicine; Visit Provider Radiology Radiation Oncology
DX: C61 Malignant neoplasm of prostate (principal); Z90.79 Acquired absence of other genital organ(s)
CPT/HCPCS: 72197; A9577

== ENCOUNTER 2024-04-14 12:06 | Outpatient (CLI) | payer MEDICARE, OTHER, SELFPAY ==
--- NOTE | ~2024-04-14 | PE_ITS ---
EXAMINATION: PET_PETPSMAST_PT DATE: 04/14/2024 15:27 INDICATION: Prostate cancer TECHNIQUE: 5.405 mCi of Locametz Ga-68([id number]) was administered i.v. Low dose computed augusto ography (CT) images were acquired from the base of the brain to the base of the brain to the proximal thighs for attenuation correction and anatomic localization. Positron emission tomography (PET) imag es were acquired in the same distribution beginning 83 minutes after injection. Images including fuse d PET/CT images were reconstructed in axial, coronal, and sagittal planes. Automated exposure control technique was employed. The dose-length product was 1024.81mGy-cm. COMPARISON: 04/11/2022 FINDINGS: Head/neck: Typical pattern of physiologic increased activity in the lacrimal, parotid and submandibular glands a s well as along the mucosa of the nasal and oral cavities, pharynx and hypopharynx. No pathologically enlarged cervical lymphadenopathy or suspicious foci of increased uptake in the visualized head or n aman. Chest: Mild elevation the left hemidiaphragm. No suspicious pulmonary nodules, pneumonia, pulmonary edema or pleural effusion. Heart size is normal. No pericardial effusion. Thoracic aorta is normal in caliber . Calcified left hilar lymph node consistent with old granulomatous disease. No pathologically enlarg ed or PSMA avid thoracic lymphadenopathy. Small sliding-type hiatal hernia. Abdomen/pelvis/proximal thighs: Physiologic renal accumulation and excretion of activity in the kidneys, bladder and along portions o f ureters. Interval prostatectomy. 1 cm low-attenuation left renal cyst. Normal degree and slightly h eterogenous pattern of increased uptake throughout the liver and spleen without radiologic correlate or dominant PSMA avid lesion. The gallbladder, pancreas and bilateral adrenal glands are normal. Mode rate uptake scattered throughout the bowels with typical duodenal and proximal jejunal predominance a nd without radiologic correlate, also likely physiologic. No other abnormal foci of increased uptake or pathologically enlarged lymphadenopathy in the abdomen, pelvis or proximal thighs. Musculoskeletal: C5-C7 anterior spinal fusion with anterior plate and screw fixation. Mild lumbar dextrocurvature with severe spondylosis. No suspicious lytic, blastic or PSMA avid bone lesions. IMPRESSION: 1. Interval prostatectomy. No evident residual, locally recurrent or metastatic disease. Reviewed, dictated and finalized at location A.
== END 2024-04-14 12:07 | disposition home or self-care (01) ==
PROVIDERS: PCP Family Medicine Adolescent Medicine; Visit Provider Nurse Practitioner
DX: C61 Malignant neoplasm of prostate (principal)
CPT/HCPCS: 78815; A9596